=== PATIENT | male | born 1960 | race Caucasian/White ===

== ENCOUNTER 2017-01-31 10:42 | Day surgery (SDC) | payer OTHER ==
[~2017-01-31] VITALS: Ht 177.8 cm; Wt 97.3 kg
[2017-01-31 11:42] VITALS: Ht 177.8 cm; Wt 97.3 kg
[2017-01-31] MEDS ORDERED: LIDOCAINE 4% SOLUTION 50 ML BTL ONE (12:19)
[2017-01-31 12:25] VITALS: BP 119/69; PULSE 84; RESP 19
--- NOTE | 2017-01-31 13:00 | OPPN ---
Date/Time of Note Date/Time of Note DATE: 01/31/17 TIME: 12:57 Advised to follow as outpatient Continue PPI HRM motility and 24-hour pH as outpatient Operative Report Preoperative Diagnosis History esophageal reflux Postoperative Diagnosis Erosive esophagitis LA classification grade d Operation/Procedure Performed EGD biopsy Surgeon see signature line optometric assistant None Anesthesia: moderate sedation (4 mg IV Versed 100 mcg of fentanyl total duration for moderate sedation 32 minute) Estimated blood loss: none Transfusion Required none Specimen Distal esophageal biopsy of the erosive esophagitis Grafts/Implants none Complications none REGINA ESCALERA MD Jan 31, 2017 13:00
--- NOTE | 2017-01-31 13:04 | OPPN ---
Date/Time of Note Date/Time of Note DATE: 01/31/17 TIME: 13:01 Follow-up as outpatient Full liquid liquid diet do not take aspirin for 5 days follow-up as outpatient in the office Repeat colonoscopy 1 year Operative Report Preoperative Diagnosis Screening: Colonoscopy Postoperative Diagnosis Ascending colon flat polyp biopsy and coagulated Operation/Procedure Performed Colonoscopy polyp biopsy in the ascending colon with coagulation polyp Surgeon see signature line medical library assistant None Anesthesia: moderate sedation ( Demerol 25 1 mg Versed total duration of moderate sedation 32 minutes) Estimated blood loss: none Transfusion Required none Specimen : Ascending colon flat polyp Grafts/Implants none Complications none REGINA ESCALERA MD Jan 31, 2017 13:04
[2017-01-31] MEDS ORDERED: MIDAZOLAM 1 MG/ML 2 ML INJ ONE ×3 (13:06→13:07)
[2017-01-31] MEDS ORDERED: FENTAnyl 50 MCG/ML VIAL ONE (13:07)
[2017-01-31] MEDS ORDERED: MEPERIDINE 50 MG INJ ONE (13:07)
[2017-01-31 13:25] VITALS: BP 129/61; PULSE 78; RESP 18
--- NOTE | 2017-01-31 14:15 | GILP ---
DATE OF PROCEDURE: 01/31/2017 PREOPERATIVE DIAGNOSIS: Gastroesophageal reflux. POSTOPERATIVE DIAGNOSES: 1. Severe erosive esophagitis, grade D, LA classification. 2. Hiatus hernia about 3 cm. DESCRIPTION OF PROCEDURE: The patient was put in left lateral decubitus after obtaining informed co nsent. Posterior pharynx anesthetized with 4% Xylocaine. He received 100 mcg of fentanyl, 4 mg IV Versed and very carefully advanced Olympus video upper endoscope into the esophagus, stomach and duo denum and examination of duodenum is normal, stomach including retroflexion showed only a small hiat us hernia. In the distal esophagus, 3 to 4 linear ulcers were noted. They were photographed and th ey were between 35 cm to 37 cm where the hiatus hernia starts. Random biopsy of these areas were do ne and sent to histopathology. It bled easily. Photography done. Scope was withdrawn. Patient oshea d no complication. PLAN: Will be to continue PPI. I advised him to go on an antireflux diet and await for biopsy repo rt. Meanwhile, I will request a high resolution motility study and 24-hour pH study. If it is sign ificant, he may need a surgical approach with fundoplication to correct his acid reflux disease whic h seems to be chronic. He will follow up as outpatient for biopsy report also. Dictated By: REGINA THOMPSON Conf#: [id number] DID#: [id number] CC: ADIN GARCIA MD;*End*
--- NOTE | 2017-01-31 14:21 | GILP ---
DATE OF PROCEDURE: POSTOPERATIVE DIAGNOSIS: Ascending colon flat polyp, otherwise unremarkable. DESCRIPTION OF PROCEDURE: The patient was put in left lateral decubitus after obtaining informed co nsent after EGD. Further sedation was done with Versed and 1 mg, Demerol 25 mg. Rectal exam done w [facility] was normal. Advanced the Olympus video colonoscope all the way to cecum. Appendiceal opening and ileocecal valve were identified. A polyp was noted just in the ascending colon close to hepatic flexure. This was photographed. It was flat about 4 mm biopsy done. Then I tried to capture with snare and due to it being flat, I was unable to capture it, so I coagulated it with very small amou nt of current and the base of the polyp and then the scope was slowly withdrawn, examining the rest of the transverse colon, descending colon, sigmoid colon, and rectum including retroflexion. These were unremarkable. Patient had no complication. Total duration of moderate sedation was [address] Garcia: Await for biopsy report, repeat colonoscopy in a year as he has flat polyp. Advis e him to go on a liquid diet, not to take aspirin for 5 days and follow up as outpatient. In case o f abdominal pain and bleeding, to come to the emergency room. Dictated By: REGINA THOMPSON Conf#: [id number] DID#: [id number] CC: ADIN GARCIA MD;*EndCC*
== END 2017-01-31 15:30 | disposition home or self-care (01) ==
LOC: GIL 10:42
PROVIDERS: ATTEND Internal Medicine
DX: Z12.11 Encounter for screening for malignant neoplasm of colon (principal); K21.0 Gastro-esophageal reflux disease with esophagitis; D12.2 Benign neoplasm of ascending colon; K20.8 Other esophagitis; K44.9 Diaphragmatic hernia without obstruction or gangrene
CPT/HCPCS: 43239; 45380; 88305; 88312; 88313; J2175; J2250; J3010